=== PATIENT | female | born 1960 | race African-American/Black ===

== ENCOUNTER 2017-01-15 05:31 | Day surgery (SDC) | payer MEDICAID ==
[~2017-01-15] VITALS: Ht 152.4 cm; Wt 68.0 kg
[~2017-01-15 05:31] MED LIST: AMLO10TA80 PO; ASPI-1159 PO; CLON0.1T PO; IBUP-2028 PO; LACTATED RINGERS 1,000 ML IV SCH; POTA10TA15 PO
[2017-01-15] MEDS ORDERED: BALANCED SALT IRRIG SOLN COMB1 500ML OP ONE (06:45)
[2017-01-15] MEDS ORDERED: TROPICAMIDE 1% OPHTH DROPS 15ML LEFTEYE ONE (06:50)
[2017-01-15] MEDS ORDERED: CYCLOPENTOLATE HCL 1% OPHTH DROPS 2ML LEFTEYE ONE (06:50)
[2017-01-15] MEDS ORDERED: PHENYLEPHRINE HCL 10% OPHTH DROPS 5ML LEFTEYE ONE (06:50)
[2017-01-15] MEDS ORDERED: HYALURONATE SODIUM 14 MG/ML 0.85ML SYRINGE IO ONE ×2 (08:24→09:34)
[2017-01-15] MEDS ORDERED: FENTANYL CITRATE/PF 50MCG/ML 2ML VIAL IV PRN (08:30)
[2017-01-15] MEDS ORDERED: ONDANSETRON HCL 4MG/2ML VIAL IV PRN (08:30)
[2017-01-15] MEDS ORDERED: FENTANYL CITRATE/PF 50MCG/ML 2ML VIAL ONE (08:33)
[2017-01-15] MEDS ORDERED: MIDAZOLAM HCL 2 MG/2 ML VIAL ONE ×2 (08:35→09:07)
[2017-01-15] MEDS ORDERED: PROPOFOL 200MG/20ML VIAL IV ONE (09:13)
[2017-01-15] MEDS ORDERED: BUPIVACAINE HCL/PF 0.75% (7.5MG/ML) 10ML ONE (14:27)
[2017-01-15] MEDS ORDERED: LIDOCAINE HCL/PF 2% 20 MG/ML 10ML VIAL ONE (14:27)
[2017-01-15] MEDS ORDERED: NEO/POLYMYX B SULF/DEXAMETH OPHTH OINT 3.5GM ONE (14:27)
[2017-01-15] MEDS ORDERED: PREDNISOLONE ACETATE 1% OPHTH DROPS 1ML ONE (14:27)
[2017-01-15] MEDS ORDERED: ACETYLCHOLINE CHLORIDE INTRAOCULAR SOLUTION 1:100 ELECTROLYTE DILUENT IO ONE (14:27)
[2017-01-15] MEDS ORDERED: LIDOCAINE HCL 2%/EPINEPHRINE 1:100,000 20 ML VIAL INFIL ONE (14:27)
[2017-01-15] MEDS ORDERED: CIPROFLOXACIN 0.3% OPHTH SOLN 2.5ML ONE (14:27)
[2017-01-15] MEDS ORDERED: BALANCED SALT IRRIG SOLN 15ML ONE (14:27)
== END 2017-01-15 10:45 | disposition home or self-care (01) ==
LOC: OR 05:31
PROVIDERS: ATTEND Ophthalmology
DX: H25.89 Other age-related cataract (principal)
CPT/HCPCS: 66984; J2250; J3010; J3490; J7120; V2632; J2704

== ENCOUNTER 2017-04-16 09:12 | Day surgery (SDC) | payer MEDICAID ==
[~2017-04-16] VITALS: Ht 152.4 cm; Wt 68.0 kg
[~2017-04-16 09:12] MED LIST changes: +BALANCED SALT IRRIG SOLN COMB1 500ML OP ONE; -LACTATED RINGERS 1,000 ML IV SCH
[2017-04-16 10:36] LABS: BASOPHILS % 0.6 % (0.0-2.0); EOSINOPHILS % 1.2 % (0.0-5.0); HEMATOCRIT. 42.8 % (36.0-48.0); HEMOGLOBIN. 14.5 g/dL (12.0-16.0); LYMPHOCYTES % 26.4 % (20.0-50.0); MEAN CORPUSCULAR VOLUME 91.4 fL (81.0-99.0); MEAN PLATELET VOLUME 8.3 fl (7.4-10.4); MONOCYTES % 7.1 % (2.0-8.0); NEUTROPHILS % 64.7 % (40.0-76.0); PLATELET 225 x1000/uL (130-400); RED BLOOD CELL COUNT 4.69 mill/uL (4.2-5.4); RED CELL DISTRIBUTION WIDTH 15.2 % (11.6-14.6)
[2017-04-16 10:50] LABS: CHLORIDE 101 mEq/L (98-107)
[2017-04-16] MEDS ORDERED: LACTATED RINGERS 1,000 ML IV SCH (11:00)
[2017-04-16] MEDS ORDERED: PHENYLEPHRINE HCL 10% OPHTH DROPS 5ML RIGHTEYE NR (11:10)
[2017-04-16] MEDS ORDERED: TROPICAMIDE 1% OPHTH DROPS 15ML RIGHTEYE NR (11:10)
[2017-04-16] MEDS ORDERED: CYCLOPENTOLATE HCL 1% OPHTH DROPS 2ML RIGHTEYE NR (11:10)
[2017-04-16] MEDS ORDERED: HYALURONATE SODIUM 14 MG/ML 0.85ML SYRINGE IO ONE (13:19)
[2017-04-16] MEDS ORDERED: NEO/POLYMYX B SULF/DEXAMETH OPHTH OINT 3.5GM ONE (13:21)
[2017-04-16] MEDS ORDERED: CIPROFLOXACIN 0.3% OPHTH SOLN 2.5ML ONE (13:21)
[2017-04-16] MEDS ORDERED: BALANCED SALT IRRIG SOLN 15ML ONE (13:21)
[2017-04-16] MEDS ORDERED: TETRACAINE 0.5% OPHTH DROPS 4ML ONE (13:21)
[2017-04-16] MEDS ORDERED: PREDNISOLONE ACETATE 1% OPHTH DROPS 1ML ONE (13:21)
[2017-04-16] MEDS ORDERED: LIDOCAINE HCL 2%/EPINEPHRINE 1:100,000 20 ML VIAL INFIL ONE (13:21)
[2017-04-16] MEDS ORDERED: BUPIVACAINE HCL/PF 0.75% (7.5MG/ML) 10ML ONE (13:21)
[2017-04-16] MEDS ORDERED: LIDOCAINE HCL/PF 2% 20 MG/ML 10ML VIAL ONE (13:21)
[2017-04-16] MEDS ORDERED: MIDAZOLAM HCL 2 MG/2 ML VIAL ONE (13:30)
[2017-04-16] MEDS ORDERED: FENTANYL CITRATE/PF 50MCG/ML 2ML VIAL ONE (13:30)
[2017-04-16] MEDS ORDERED: PROPOFOL 200MG/20ML VIAL IV ONE (13:30)
[2017-04-16] MEDS ORDERED: MEPERIDINE HCL/PF 25MG/ML CPJ IV PRN (13:45)
[2017-04-16] MEDS ORDERED: ONDANSETRON HCL 4MG/2ML VIAL IV SCH (13:45)
== END 2017-04-16 15:00 | disposition home or self-care (01) ==
LOC: OR 09:12
PROVIDERS: ATTEND Ophthalmology
DX: H25.89 Other age-related cataract (principal)
CPT/HCPCS: 36415; 66982; 80048; 85025; 93005; J2250; J3010; J3490; J7120; V2632; J2704